=== PATIENT | male | born 2005 | race Caucasian/White ===

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

== ENCOUNTER 2023-05-11 08:32 | Emergency (ER) | payer BC ==
[2023-05-11] MEDS: Ibuprofen 600 MG Tab PO ONE (10:06)
[2023-05-11 10:27] LABS: CORONAVIRUS COVID-19 NAA NEGATIVE (NEGATIVE); INFLUENZA A NAA NEGATIVE (NEGATIVE); INFLUENZA B NAA POSITIVE (NEGATIVE)
== END 2023-05-11 11:04 | disposition home or self-care (01) ==
LOC: MW.ED 08:32
DX: J10.1 Influenza due to other identified influenza virus with other respiratory manifestations (principal); F17.210 Nicotine dependence, cigarettes, uncomplicated
CPT/HCPCS: 0240U; 99283; A9270

== ENCOUNTER 2023-08-14 05:12 | Emergency (ER) | payer BC ==
[2023-08-14] MEDS: Albuterol/Ipratropium 3.0-0.5 MG/3 ML Neb Soln NEB ONE (05:44)
== END 2023-08-14 07:33 | disposition home or self-care (01) ==
LOC: MW.ED 05:12
DX: R06.00 Dyspnea, unspecified (principal); Z79.51 Long term (current) use of inhaled steroids
CPT/HCPCS: 71046; 71046-26; 82947; 93005; 93010; 99283; 99285; J7620-GY

== ENCOUNTER 2023-08-15 23:40 | Emergency (ER) | payer BC ==
[2023-08-15] MEDS: Sodium Chloride 0.9% 1,000 ML IV ONE (23:48)
[2023-08-15] MEDS: Sodium Chloride 0.9% 2.5 ML Syringe FLUSH PRN (23:49)
[2023-08-15] MEDS: Sodium Chloride 0.9% 10 ML Syringe FLUSH PRN (23:49)
[2023-08-16 00:11] LABS: BASOPHILS ABSOLUTE AUTO 0.03 K/uL (0.00-0.20); BASOPHILS PERCENT AUTO 0.3 % (0.0-1.0); EOSINOPHILS ABSOLUTE AUTO 0.13 K/uL (0.00-0.45); EOSINOPHILS PERCENT AUTO 1.5 % (0.0-6.0); HEMATOCRIT 44.1 % (42.0-52.0); HEMOGLOBIN 15.7 g/dL (14.0-18.0); IMMATURE GRAN ABSOLUTE AUTO 0.03 K/uL (0.00-0.05); IMMATURE GRAN PERCENT AUTO 0.3 % (0.0-0.4); LYMPHOCYTES ABSOLUTE AUTO 3.33 K/uL (1.00-4.80); LYMPHOCYTES PERCENT AUTO 37.5 % (24.0-44.0); MEAN CORPUSCULAR HEMOGLOBIN 30.8 pg (28.0-32.0); MEAN CORPUSCULAR HGB CONC 35.6 g/dL (32.0-36.0); MEAN CORPUSCULAR VOLUME 86.6 fL (83.0-99.0); MEAN PLATELET VOLUME 10.2 fL (9.4-12.4); MONOCYTES ABSOLUTE AUTO 0.54 K/uL (0.00-0.80); MONOCYTES PERCENT AUTO 6.1 % (0.0-8.0); NEUTROPHILS ABSOLUTE AUTO 4.82 K/uL (1.80-7.70); NEUTROPHILS PERCENT AUTO 54.3 % (41.0-71.0); PLATELET COUNT,PLT 257 K/uL (150-400); RED BLOOD CELL COUNT 5.09 M/uL (4.52-5.90); WHITE BLOOD CELL COUNT,WBC 8.88 K/uL (3.9-11.3)
[2023-08-16] MEDS: Ondansetron 4 MG/2 ML SDV IVPUSH ONE (00:22)
[2023-08-16 00:26] LABS: A/G RATIO 1.1 (0.9-1.6); ALANINE AMINOTRANSFERASE,ALT 33 IU/L (14-63); ALBUMIN 3.9 g/dL (3.4-5.0); ALKALINE PHOSPHATASE 97 U/L (46-116); ASPARTATE AMNIOTRANSFERASE,AST 21 IU/L (15-37); BILIRUBIN TOTAL 0.4 mg/dL (0.2-1.0); BLOOD UREA NITROGEN,BUN 11 mg/dL (7.0-18.0); CALCIUM 8.4 mg/dL (8.5-10.1); CARBON DIOXIDE,CO2 26.8 mmol/L (21.0-32.0); CHLORIDE,CL 102 mmol/L (98-107); EST CRCL DRUG DOSING (CG) 129.33 mL/min; GLUCOSE RANDOM 208 mg/dL (74-106); LIPASE 20 U/L (16-77); MAGNESIUM 1.7 mg/dL (1.8-2.4); POTASSIUM,K 3.6 mmol/L (3.5-5.1); PROTEIN TOTAL,TP 7.3 g/dL (6.4-8.2); SODIUM,NA 138 mmol/L (136-148); TSH ULTRASENSITIVE 2.28 uIU/mL (0.36-3.74)
[2023-08-16 00:33] LABS: ESTIMATED GFR 111 mL/min (>60)
[2023-08-16 01:00] LABS: HEMOGLOBIN A1C 5.4 %
[2023-08-16] MEDS: Magnesium Sulfate/Water 2 GM in Premix Bag 1 BAG IV ONE (01:25)
== END 2023-08-16 02:22 | disposition home or self-care (01) ==
LOC: MW.ED 23:40
DX: R00.2 Palpitations (principal); R42 Dizziness and giddiness; E83.42 Hypomagnesemia; Z79.899 Other long term (current) drug therapy
CPT/HCPCS: 36415; 80053; 83036; 83690; 83735; 84443; 84484; 85025; 85379; 93005; 96361; 96365; 96375; 99285; J2405; J3475; J3490; J7030; 93010; 99284